=== PATIENT | male | born 1955 | race Caucasian/White ===

== ENCOUNTER 2022-10-20 13:43 | Inpatient (IN) | payer MEDICARE, OTHER ==
[~2022-10-20] VITALS: Ht 165.1 cm; Wt 51.0 kg
[2022-10-20 15:55] LABS: BASOPHILS % (AUTO) 0.5 % (0.0-5.0); EOSINOPHILS % (AUTO) 0.9 % (0.0-8.0); HEMATOCRIT 44.4 % (42-54); LYMPHOCYTES % (AUTO) 7.1 % (21.0-51.0); MEAN CORPUSCULAR HEMOGLOBIN 30.5 pg (27.0-33.0); MEAN CORPUSCULAR HGB CONC 32.7 g/dL (32.0-36.0); MEAN CORPUSCULAR VOLUME 93.5 fL (79-99); MONOCYTES % (AUTO) 5.8 % (3.0-13.0); NEUTROPHILS % (AUTO) 85.3 % (40.0-77.0); PLATELET COUNT (AUTO) 293 K/uL (130-400); RED BLOOD CELL COUNT(AUTO) 4.75 MIL/uL (4.50-6.20); RED CELL DISTRIBUTION WIDTH 13.2 % (11.0-15.5); WHITE BLOOD COUNT (AUTO) 12.8 K/uL (4.8-10.8)
[2022-10-20 16:08] LABS: POTASSIUM 4.1 mmol/L (3.5-5.1)
[2022-10-20 16:12] LABS: ALBUMIN 4.1 g/dL (3.5-5.0); TOTAL PROTEIN, SERUM 8.1 g/dL (6.0-8.3)
[2022-10-20] MEDS ORDERED: 0.9%NACL 1000ML 1,000 ML IV ONE (16:30)
[2022-10-20] MEDS ORDERED: MORPHINE 2 MG SYG IVP ONE (16:30)
[2022-10-20] MEDS ORDERED: IOHEXOL 350 MG/ML 100ML INFUS..BTL IV ONE (16:33)
[2022-10-20 18:36] LABS: APPEARANCE,URINE CLEAR (CLEAR); BILIRUBIN,URINE NEGATIVE (NEGATIVE); COLOR,URINE LIGHT-YELLOW (YELLOW); GLUCOSE, URINE (UA) NEGATIVE (NEGATIVE); KETONES,URINE 10 mg/dL (NEGATIVE); LEUKOCYTE ESTERASE ,URINE NEGATIVE Leu/uL (NEGATIVE); NITRATE,URINE NEGATIVE (NEGATIVE); OCCULT BLOOD,URINE NEGATIVE (NEGATIVE); PH,URINE 6.5 (5.0-8.0); PROTEIN,URINE 10 mg/dL (NEGATIVE); UROBILINOGEN,URINE 0.2 mg/dL (0.2-1.0)
[2022-10-20 18:38] LABS: BACTERIA,URINE RARE /HPF (None Seen); MUCUS,URINE RARE LPF (None Seen); RBC,URINE 26-50 /HPF (0-1)
[2022-10-20] MEDS ORDERED: ACETAMINOPHEN 325 MG TAB PO PRN (19:00)
[2022-10-20 19:49] LABS: HEMATOCRIT 39.7 % (42-54); MEAN CORPUSCULAR HEMOGLOBIN 30.8 pg (27.0-33.0); MEAN CORPUSCULAR VOLUME 93.2 fL (79-99); RED BLOOD CELL COUNT(AUTO) 4.26 MIL/uL (4.50-6.20); RED CELL DISTRIBUTION WIDTH 13.4 % (11.0-15.5); WHITE BLOOD COUNT (AUTO) 13.1 K/uL (4.8-10.8)
[2022-10-20 20:40] VITALS: BP 151/91
[2022-10-20] MEDS: DEXTROSE 5 % AND 0.9 % NACL 1,000 ML IV SCH (21:07)
[2022-10-20 23:20] VITALS: BP 127/65
[2022-10-21] MEDS: HYDROMORPHONE 0.5 MG SYG (0.5MG/0.5ML) IVP PRN ×4 (00:04→19:54)
[2022-10-21 03:24] VITALS: BP 119/76
[2022-10-21 06:23] LABS: CREATININE 0.8 mg/dL (0.5-1.5); MAGNESIUM 1.7 mg/dL (1.80-2.40); POTASSIUM 4.1 mmol/L (3.5-5.1); TOTAL PROTEIN, SERUM 6.1 g/dL (6.0-8.3)
[2022-10-21] MEDS ORDERED: MAGNESIUM 2GM PREMIX 50ML 50 ML IV PRN (07:00)
[2022-10-21 08:00] VITALS: BP 120/73
[2022-10-21] MEDS: DEXTROSE 5 % AND 0.9 % NACL 1,000 ML IV SCH ×2 (08:20→19:54)
[2022-10-21 12:00] VITALS: BP 122/76
[2022-10-21] MEDS: LACTULOSE 20 GM/30 ML UDCUP PO SCH ×2 (14:30→19:54)
[2022-10-21 20:47] VITALS: BP 155/87
[2022-10-22 00:03] VITALS: BP 155/90
[2022-10-22] MEDS: HYDROMORPHONE 0.5 MG SYG (0.5MG/0.5ML) IVP PRN ×5 (03:32→21:12)
[2022-10-22 04:29] VITALS: BP 146/89
[2022-10-22 05:16] LABS: HEMATOCRIT 41.6 % (42-54); MEAN CORPUSCULAR HEMOGLOBIN 30.8 pg (27.0-33.0); MEAN CORPUSCULAR HGB CONC 32.7 g/dL (32.0-36.0); MEAN CORPUSCULAR VOLUME 94.3 fL (79-99); RED BLOOD CELL COUNT(AUTO) 4.41 MIL/uL (4.50-6.20); RED CELL DISTRIBUTION WIDTH 13.4 % (11.0-15.5); WHITE BLOOD COUNT (AUTO) 9.9 K/uL (4.8-10.8)
[2022-10-22 05:32] LABS: CREATININE 0.7 mg/dL (0.5-1.5); MAGNESIUM 2.3 mg/dL (1.80-2.40); POTASSIUM 3.9 mmol/L (3.5-5.1)
[2022-10-22] MEDS: ONDANSETRON 4MG INJ IVP PRN ×2 (06:39→11:51)
[2022-10-22 07:30] VITALS: BP 141/86
[2022-10-22] MEDS: LACTULOSE 20 GM/30 ML UDCUP PO SCH ×3 (08:26→21:12)
[2022-10-22 11:30] VITALS: BP 149/83
[2022-10-22] MEDS: DEXTROSE 5 % AND 0.9 % NACL 1,000 ML IV SCH ×2 (11:56→21:12)
[2022-10-22 15:30] VITALS: BP 155/90
[2022-10-22 20:00] VITALS: BP 128/79
[2022-10-23 00:05] VITALS: BP 130/76
[2022-10-23] MEDS: HYDROMORPHONE 0.5 MG SYG (0.5MG/0.5ML) IVP PRN ×3 (00:36→11:37)
[2022-10-23 04:44] VITALS: BP 115/69
[2022-10-23 05:17] LABS: HEMATOCRIT 35.1 % (42-54); MEAN CORPUSCULAR HEMOGLOBIN 30.4 pg (27.0-33.0); MEAN CORPUSCULAR HGB CONC 31.9 g/dL (32.0-36.0); MEAN CORPUSCULAR VOLUME 95.4 fL (79-99); RED BLOOD CELL COUNT(AUTO) 3.68 MIL/uL (4.50-6.20); RED CELL DISTRIBUTION WIDTH 13.5 % (11.0-15.5); WHITE BLOOD COUNT (AUTO) 9.9 K/uL (4.8-10.8)
[2022-10-23 05:29] LABS: CREATININE 0.9 mg/dL (0.5-1.5); MAGNESIUM 1.7 mg/dL (1.80-2.40); POTASSIUM 3.8 mmol/L (3.5-5.1)
[2022-10-23 07:30] VITALS: BP 117/63
[2022-10-23] MEDS: LACTULOSE 20 GM/30 ML UDCUP PO SCH (09:16)
[2022-10-23] MEDS ORDERED: MAGNESIUM 4GM PREMIX 100ML 100 ML IV SCH (10:11)
[2022-10-23 11:30] VITALS: BP 127/68
== END 2022-10-23 15:00 | disposition home or self-care (01) | DRG 389 ==
LOC: EDH 13:43 → EDHIP 18:19 → 3DH 20:29
PROVIDERS: ADMIT Internal Medicine Infectious Disease; ATTEND Internal Medicine Infectious Disease
DX: K56.609 Unspecified intestinal obstruction, unspecified as to partial versus complete obstruction (principal); C19 Malignant neoplasm of rectosigmoid junction; E86.0 Dehydration; K59.00 Constipation, unspecified; D64.9 Anemia, unspecified; D72.829 Elevated white blood cell count, unspecified; Z93.3 Colostomy status; Z85.048 Personal history of other malignant neoplasm of rectum, rectosigmoid junction, and anus
CPT/HCPCS: 36415; 74177; 80048; 80053; 81001; 83036; 83735; 85025; 85027; 96361; 96374; G0378; J1170; J2405; J3475; J7042; Q9967